=== PATIENT | female | born 1950 | race Caucasian/White ===

== ENCOUNTER → 2021-09-26 09:15 | Outpatient (BNVA) | payer MEDICARE, OTHER, SELFPAY | PROVIDERS: PCP Family Medicine; Referring Provider Family Medicine; Visit Provider Surgery | DX: Z11.52 Encounter for screening for COVID-19 (principal); K21.9 Gastro-esophageal reflux disease without esophagitis | CPT/HCPCS: 87635 ==

== ENCOUNTER → 2021-10-21 10:36 | Outpatient (BNVA) | payer MEDICARE, OTHER, SELFPAY | PROVIDERS: PCP Family Medicine; Visit Provider Surgery | DX: Z20.822 Contact with and (suspected) exposure to COVID-19 (principal) | CPT/HCPCS: 87635 ==

== ENCOUNTER 2021-10-26 09:49 | Day surgery (SDC) | payer MEDICARE, OTHER, SELFPAY ==
[2021-10-24 12:32] VITALS: BMI 25.0
[2021-10-26 10:17] VITALS: BP 161/58; PULSE 66; RESP 18; TEMP 36.5; O2SAT 99
--- NOTE | 2021-10-26 10:22 | P.ANESASSM_ITS ---
Pre-Anesthetic Assessment Height/Weight: Height 1.7 m Weight 72.575 kg Temp Pulse Resp BP Pulse Ox 97.7 F 66 18 161/58 99 10/26/21 10:17 10/26/21 10:17 10/26/21 10:17 10/26/21 10:17 10/26/21 10:17 Preop Diagnosis: upper gi symptoms Operation Date: 10/26/21 11:15 Proposed Procedures p EGD 43328/k21.9(Not Applicable) - Ryan Walden MD Familial anesthetic complications: None Was Beta Desmond taken within 24 hours: N/A Was Clonidine taken within 24 hours: N/A Last intake: Intake Last Liquid Date 10/25/21 Last Liquid Time 21:00 Last Solid Date 10/25/21 Last Solid Time 21:00 Social No alcohol and No tobacco Exam alert, oriented x 3, clear to auscultation bilaterally and regular rate & rhythm Airway Submandibular: within normal limits Cervical ROM: within normal limits Mallampati: Class II Dentition: full GI Gastroesophageal Reflux Disease Anesthetic Plan ASA status: 2 Anesthesia: General Medications/Allergies Home Medications Medication Instructions Recorded Confirmed Last Taken Type hyoscyamine sulfate 0.125 mg tablet 0.125 mg PO QID PRN 09/26/21 10/26/21 Unknown History Allergies Allergy/AdvReac Type Severity Reaction Status Date / Time Penicillins Allergy Severe hives Verified 10/26/21 10:14 [facility] Anesthesia Medical History GERD (gastroesophageal reflux disease) HHT (hereditary hemorrhagic telangiectasia) History of breast cancer Surgical History History of breast reconstruction 2019 History of colonoscopy with polypectomy 2020 History of esophagogastroduodenoscopy (EGD) 2011 History of mastectomy 2016 History of tubal ligation Family History Other CAD (coronary artery disease) Cancer Diabetes Stroke Denies family history of Dementia Chronic kidney disease (CKD) Social History Smoking and tobacco status: never smoked Second hand smoke exposure: No Alcohol intake: never Lives independently: Yes Household members: spouse Marital status: Data Anesthesia Cardiac Studies: No Data to Display
[2021-10-26] MEDS: sodium chloride 0.9% 1,000 ML 30 ML IV (10:23)
--- NOTE | 2021-10-26 10:32 | P.HP_ITS ---
Same Day Surgery H&P Indication for Procedure/HPI DATE OF PROCEDURE: October 26, 2021 CHIEF COMPLAINT/INDICATIONFOR SURGICAL PROCEDURE: egd PREOP DIAGNOSIS: upper gi symptoms PLANNED PROCEDURE: Operation Date: 10/26/21 11:15 Proposed Procedures p EGD 48377/k21.9(Not Applicable) - Ryan Walden MD Medications/Allergies* Home Medications Medication Instructions Recorded Confirmed Type hyoscyamine sulfate 0.125 mg tablet 0.125 mg PO QID PRN 09/26/21 10/26/21 History Allergies/Adverse Reactions Allergy/AdvReac Type Severity Reaction Status Date / Time Penicillins Allergy Severe hives Verified 10/26/21 10:14 Current Medications: Generic Name Dose Route Start Last Admin Trade Name Freq PRN Reason Stop Dose Admin Sodium Chloride 1,000 mls @ 30 mls/hr 10/26/21 10:00 10/26/21 10:23 Sodium Chloride 0.9% IV 10/27/21 09:59 30 mls/hr .Q24H JANELLE Administration Pertinent History/Comorbid Conditions* Medical History (Updated 09/26/21 @ 09:50 by Ryan Walden MD) GERD (gastroesophageal reflux disease) HHT (hereditary hemorrhagic telangiectasia) History of breast cancer Surgical History (Updated 09/26/21 @ 08:48 by Ryan Walden MD) History of breast reconstruction 2019 History of colonoscopy with polypectomy 2020 History of esophagogastroduodenoscopy (EGD) 2011 History of mastectomy 2016 History of tubal ligation Family History (Updated 09/26/21 @ 08:43 by Rowan Lanza) Diabetes CAD (coronary artery disease) Cancer Stroke Denies family history of Dementia Chronic kidney disease (CKD) Social History Smoking and tobacco status: never smoked Second hand smoke exposure: No Alcohol intake: never Lives independently: Yes Household members: spouse Marital status: Pertinent Exam Findings alert, oriented x 3 and regular rate & rhythm Recommendations Surgery/Procedure today Coding Level of Care Code Acute Legal Billing Coordinator for Nicole Maldonado
[2021-10-26 11:14] VITALS: BP 121/52; PULSE 64; RESP 18; TEMP 36.1; O2SAT 100
--- NOTE | 2021-10-26 11:19 | ANE.PACU2 ---
Inpatient post-anesthesia follow up: Airway intact: Yes Vital signs: Temperature 97 F Pulse Rate 64 Respiratory Rate 18 Blood Pressure 121/52 Pulse Oximetry 100 Oxygen Delivery Me thod Room Air Oxygen Flow Rate Fraction of Inspir ed Oxygen Hydration adequate: Yes Nausea and vomiting: No Pain level: 1 Mental status: Baseline
[2021-10-26 11:25] VITALS: BP 138/75; PULSE 63; RESP 18; O2SAT 98
== END 2021-10-26 11:52 | disposition home or self-care (01) ==
PROVIDERS: PCP Family Medicine; Visit Provider Surgery
PROC: 0DJ08ZZ Inspection of Upper Intestinal Tract, Via Natural or Artificial Opening Endoscopic (ICD-10-PCS; CPT 43235; principal; 2021-10-26 11:15)
DX: K21.9 Gastro-esophageal reflux disease without esophagitis (principal); K29.70 Gastritis, unspecified, without bleeding; Z85.3 Personal history of malignant neoplasm of breast
CPT/HCPCS: 43239; 88305; J7030

== ENCOUNTER → 2021-11-15 15:30 | Outpatient (BNVA) | payer MEDICARE, BC, SELFPAY | PROVIDERS: PCP Family Medicine; Visit Provider Surgery | DX: K29.70 Gastritis, unspecified, without bleeding (principal); B96.81 Helicobacter pylori [H. pylori] as the cause of diseases classified elsewhere | CPT/HCPCS: 99212 ==